=== PATIENT | female | born 1980 | race Hispanic/Latino ===

== ENCOUNTER 2018-09-13 10:12 | Day surgery (SDC) | payer OTHER ==
[2018-09-13 10:41] LABS: BASO # 0.06 K/mm3 (0.0-2.0); EOS # 0.1 (0.0-0.7); EOS % 1.3 % (1.5-5.0); HEMOGLOBIN 15.7 g/dL (12.0-16.0); LYMPH # 1.9 (1.2-3.4); LYMPH % 31.6 % (22.0-35.0); MEAN CELL VOLUME 89.4 fl (80.0-105.0); MEAN CORPUSCULAR HEMOGLOBIN 29.8 pg (25.0-35.0); MEAN CORPUSCULAR HGB CONC 33.3 g/dl (31.0-37.0); MEAN PLATELET VOLUME 12.3 fl (7.0-11.0); MONO # 0.3 (0.1-0.6); MONO % 4.5 % (1.0-6.0); RBC 5.27 10^6/uL (3.5-6.1); RED CELL DISTRIBUTION WIDTH 12.9 % (11.5-14.5)
[2018-09-13 10:54] LABS: ALB/GLOB RATIO 1.2 (1.1-1.8); ALBUMIN 5.1 g/dL (3.0-4.8); ALT/SGPT 19 U/L (7-56); AMYLASE 58 U/L (35-125); AST/SGOT 32 U/L (14-36); BLOOD UREA NITROGEN 12 mg/dL (7-21); CALCIUM 10.1 mg/dL (8.4-10.5); GAMMA GLUTAMYL TRANSPEPTIDASE 44 U/L (8-78); GFR NON-AFRICAN AMERICAN > 60; LIPASE 129 U/L (23-300)
[2018-09-13] MEDS ORDERED: Propofol 10 mg/ml Inj (20 ML) ONE (12:10)
[2018-09-13] MEDS ORDERED: Lidocaine 1% Inj (20ml) ONE (12:11)
[2018-09-13] MEDS ORDERED: Midazolam 2 MG/2 ML VIAL ONE (12:11)
[2018-09-13] MEDS ORDERED: Sodium Chloride 0.9% 1,000 ML IV SCH (13:15)
[2018-09-13 14:34] VITALS: BP 100/63; PULSE 69; TEMP 97.9; O2SAT 99
[2018-09-13 14:37] VITALS: RESP 17
== END 2018-09-13 15:25 | disposition home or self-care (01) ==
LOC: ENDO 10:12
PROVIDERS: ATTEND Internal Medicine Gastroenterology
DX: K31.7 Polyp of stomach and duodenum (principal); K29.50 Unspecified chronic gastritis without bleeding; R13.10 Dysphagia, unspecified; K80.20 Calculus of gallbladder without cholecystitis without obstruction
CPT/HCPCS: 36415; 43239; 43259; 80053; 82150; 82977; 83690; 84703; 85025; 88305; 88312; 88342; J2250; J2704; J3010; J7030; J7040